=== PATIENT | female | born 1960 | race Caucasian/White ===

== ENCOUNTER 2024-06-17 17:41 | Emergency (ER) | payer MEDICARE, SELFPAY ==
--- NOTE | ~2024-06-17 | XR_ITS ---
XR hand LT min 3V Ordering provider: LILI Fitzgerald History: . left thumb laceration . Comparison: None. FINDINGS: BONES: Fracture of the midshaft of the distal phalanx of the left thumb. Sclerotic changes in the dis maria teresa radius. JOINT SPACES: Narrowing of the proximal and distal interphalangeal joints. Osteoarthritic changes of the first carpometacarpal joint. SOFT TISSUES: Unremarkable. IMPRESSION: Comminuted fracture in the midshaft of the distal phalanx of the left thumb. Reviewed, dictated and finalized at location A.
[2024-06-17 17:57] VITALS: BP 114/69; PULSE 100; RESP 16; TEMP 36.8; O2SAT 100
--- NOTE | 2024-06-17 18:54 | ED.GENADULT ---
HPI - General Adult General Chief complaint: Wound/Laceration Stated complaint: Left thumb injury/lac Source: patient Mode of arrival: ambulatory Limitations: no limitations History of Present Illness HPI narrative: Patient presents for evaluation of left thumb laceration. Symptom onset just prior to arrival. She tripped over curb and landed with her hands outstretched. She did not hit her head. No loss of consciousness. She has the blood thinners. She now reports 5/10 pain in the affected digit that she states is throbbing. She has chronic weakness in her LUE following a stroke in the setting of cervical spinal stenosis. She is right hand dominant. She is not diabetic. Date of last tetanus unknown. Related Data Home Medications Medication Instructions Recorded Confirmed acyclovir 400 mg tablet mg 06/17/24 albuterol sulfate 90 mcg/actuation inhalation 06/17/24 aerosol inhaler baclofen 10 mg tablet mg 06/17/24 bupropion HCl 150 mg 24 hr tablet, mg PO 06/17/24 extended release ciclopirox 0.77 % topical cream applic topical 06/17/24 cyanocobalamin (vitamin B-12) mcg 06/17/24 1,000 mcg/mL injection solution dextroamphetamine-amphetamine 30 06/17/24 mg tablet levothyroxine 50 mcg tablet mcg 06/17/24 losartan 100 tablet 06/17/24 mg-hydrochlorothiazide 12.5 mg tablet omeprazole 40 mg capsule,delayed mg 06/17/24 release rosuvastatin 5 mg tablet mg 06/17/24 venlafaxine 150 mg mg PO 06/17/24 capsule,extended release 24 hr Allergies Allergy/AdvReac Type Severity Reaction Status Date / Time Penicillins Allergy Unknown Verified 06/17/24 17:54 Sulfa (Sulfonamide Allergy Unknown Verified 06/17/24 17:54 Antibiotics) Review of Systems Review of Systems: CONSTITUTIONAL: Denies fever, chills, or sweats. EYES: Denies visual changes, redness, or discharge. ENT: Denies rhinorrhea, congestion, sore throat, or otalgia. CARDIOVASCULAR: Denies chest pain, palpitations, or edema. RESPIRATORY: Denies cough or dyspnea. GASTROINTESTINAL: Denies abdominal pain, nausea, vomiting, or diarrhea. GENITOURINARY: Denies dysuria or hematuria. SKIN: Reports laceration to the left thumb. Reports abrasion to the right knee. MUSCULOSKELETAL: Reports left thumb pain and right knee pain NEUROLOGIC: Denies headache, numbness, dizziness, or weakness. PSYCHIATRIC: Denies anxiety or depression. [facility] Past Medical History Medical History Hyperlipidemia Hypertension Stroke Surgical History Surgical History No pertinent past surgical history Family History Family History Mother Family history non-contributory Social History Social History (Updated 06/17/24 @ 18:57 by LILI Fitzgerald, ) Substance use: never Gender identity (if verbalized by the patient): Female Spiritual care concerns: No Exam Narrative: GENERAL: Well-appearing, well-nourished, and in no acute distress. HEAD: Normocephalic, atraumatic. EYES: PERRLA and EOMI. ENT: Nares clear, no rhinorrhea or epistaxis. Mucous membranes moist. Oropharynx without tonsillar hypertrophy exudate or other lesions. Bilateral TMs pearly cabrera nonbulging NECK: Supple. No adenopathy or masses. No carotid bruits or JVD CHEST: Clear to auscultation. No respiratory distress. No wheezes rales or rhonchi HEART: Regular rate and rhythm. No murmur heard. Normal peripheral pulses. ABDOMEN: Soft, nontender, nondistended, normal active bowel sounds. EXTREMITIES: Slight decreased flexion of the MCP and IP joint of the left thumb. 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 There is small amount of active sanguinous drainage. There is a 4 cm linear laceration to the left thumb along the palmar
[2024-06-17] MEDS: TETANUS,DIPHTHERIA,AC PERTUSSIS ADULT (0.5 ML) BOOSTRIX IM (19:03)
== END 2024-06-17 19:12 | disposition short-term general hospital (02) ==
PROVIDERS: Emergency Provider Nurse Practitioner; PCP Internal Medicine
DX: S62.522B Displaced fracture of distal phalanx of left thumb, initial encounter for open fracture (principal); W18.09XA Striking against other object with subsequent fall, initial encounter; Z23 Encounter for immunization; I10 Essential (primary) hypertension; E78.5 Hyperlipidemia, unspecified; I69.354 Hemiplegia and hemiparesis following cerebral infarction affecting left non-dominant side
CPT/HCPCS: 73130; 90471; 90715; 99213; G0463